=== PATIENT | female | born 1935 | race Caucasian/White ===

== ENCOUNTER → 2016-11-29 | Outpatient (CLI) | payer OTHER ==
[~2016-11-29] MED LIST: AMLODIPINE BESYL5 MG; ASPIRIN325; COZAAR 50 MG TA50 M1 PO; ERYTHROMYCIN E3.5 G1; LEVOTHYROXINE; NORVASC 5 MG TAB5 MG PO; PREVACID15 MG; SEPTRA DS TABL1 EACH PO; TRAVATAN 0.004%5 ML OP; TRIAMTERENE-HC1 EAC1 PO; XANAX 0.25 MG0.25 MG; ZOFRAN 4 MG ORAL4 M1 DIS; ZOLOFT25 MG PO; [UNRECOGNIZED DRUG - OTHER] OP
== END ==
LOC: CAT 12:45
DX: R91.8 Other nonspecific abnormal finding of lung field (principal)